=== PATIENT | male | born 1980 | race Two or more races ===

== ENCOUNTER 2021-08-08 16:03 | Emergency (ER) | payer OTHER ==
[~2021-08-08] VITALS: Ht 175.3 cm; Wt 134.4 kg
--- NOTE | 2021-08-08 16:54 | PHYS DOC ---
Past Medical History Past Medical History: Diabetes-Type II, High Cholesterol, Hypertension Additional Past Medical Histor: BEIGN ESSENTIAL TREMORS, SLEEP APENA Past Surgical History: No Surgical History General Adult EDM: Chief Complaint: SHORTNESS OF BREATH HPI: HPI: Patient is a 40 year old male with history of HTN, HLD, DM, obesity, sleep apnea who presents with cough, congestion, fever/chills, body aches, and mild shortness of breath. Patient developed symptoms on 08/02. Continue to go to work throughout the week. Has had progressive shortness of breath over the past 2 days. Has been taking Coricidin cough medicine, but no Tylenol or ibuprofen. Today at work he had an episode of diarrhea and afterwards was clammy, sweaty, and was ill-appearing to his coworkers who called an ambulance. He was taken to [facility] where he waited in the emergency department waiting room for several hours before leaving before being seen. He has had 2 shots of [email or web address] COVID-vaccine. Last in December 2020. Has not received a booster. His has had a runny nose and cough, but otherwise no sick contacts. No kn own COVID contacts. Review of Systems: Review of Systems: Constitutional: Reports fever and chills HENT: Reports cough and congestion. Respiratory: Reports dry cough and shortness of breath Cardiovascular: Denies chest pain or edema. [] GI: Denies abdominal pain, nausea, vomiting, bloody stools or diarrhea. [] : Denies dysuria. [] Musculoskeletal: Reports diffuse muscle aches. Integument: Denies rash. [] Neurologic: Denies headache, focal weakness or sensory changes. [] Endocrine: Denies polyuria or polydipsia. [] Lymphatic: Denies swollen glands. [] Psychiatric: Denies depression or anxiety. [] Heart Score: C/O Chest Pain: No Allergies: Allergies: Allergies Coded Allergies Type Severity Reaction Last Updated Verified metformin Allergy Unknown 08/08/21 Yes oxycodone Allergy Unknown 08/08/21 Yes Physical Exam: PE: Constitutional: Obese, well developed, well nourished, no acute distress, non- toxic appearance. [] HENT: Normocephalic, atraumatic Neck: Normal range of motion, no tenderness, supple, no stridor. [] Cardiovascular: Regular rate and rhythm. Lungs & Thorax: Distant lung sounds given habitus, but no focal abnormalities appreciated on auscultation Abdomen: Bowel sounds normal, soft, no tenderness, no masses, no pulsatile masses. [] Skin: Warm, dry, no erythema, no rash. [] Back: No tenderness, no CVA tenderness. [] Extremities: No tenderness, no cyanosis, no clubbing, ROM intact, no edema. [] Neurologic: Alert and oriented X 3, normal motor function, normal sensory function, no focal deficits noted. [] Psychologic: Affect normal, judgement normal, mood normal. [] Current Patient Data: Vital Signs: Vital Signs Date Time Temp Pulse Resp B/P (MAP) Pulse Ox O2 Delivery O2 Flow Rate FiO2 08/08/21 16:28 98.5 70 18 131/80 (97) 96 Room Air 98.5 EKG: EKG: Sinus rhythm. Borderline first-degree AV block, MI 200 ms. Right bundle branch block with left anterior fascicular block. Impression: Bifascicular block with borderline trifascicular block. [] Radiology/Procedures: Radiology/Procedures: [] Impression: [facility] [address] [place] [address] IMAGING REPORT Signed PATIENT: ANN MCKINNEY ACCOUNT: [id number] : 1980 LOCATION: ER AGE: 40 SEX: M EXAM STATUS: REG ER ORD. PHYSICIAN: SULLY FLOREZ MD REASON: cough, sob PROCEDURE: CHEST AP ONLY EXAM: CHEST ONE VIEW. HISTORY: Cough, shortness of breath. COMPARISON: None. FINDINGS: A frontal view of the chest is obtained. There are no confluent infiltrates. There is no pneumothorax or pleural effusion. The heart is not enlarged. IMPRESSION: 1. No confluent infiltrates. Electronically signed by: Viv Healy MD (08/08/2021 5:09 PM) [facility] DICTATED and SIGNED BY: SULLY HEALY MD DATE: 08/08/21 [id number] Course & Med Decision Making: Course & Med Decision Making Pertinent Labs and Imaging studies reviewed. (See chart for details) Patient 40-year-old male who presents with approximately 5 days of cough congestion, muscle aches, and now shortness of breath. On arrival is afebrile, vital signs stable, satting 96+ percent on room air. High suspicion for pneumonia (viral or bacterial). Fortunately no chest pain to suggest PE, ACS. No wheezing/not COPD. No evidence of volume overload/CHF. Will check CXR, basic labs, COVID/influenza swabs, EKG. 1652 Chest x-ray clear. COVID positive. Very mild hyponatremia. Do not feel he requires active treatment/hospitalization. Vitals have remained stable. Expectant management and return precautions discussed 1809 Meryl Disclaimer: Meryl Disclaimer: This electronic medical record was generated, in whole or in part, using a voice recognition dictation system. Departure Departure Impression: Primary Impression: COVID-19 Disposition: HOME / SELF CARE / HOMELESS Condition: STABLE Referrals: NON,STAFF (PCP) Additional Instructions: You have Covid. Isolation: -You will need to isolate for a minimum of 10 days from symptom onset. -At the 10-day amado (or 5-day amado with a negative COVID test), you must also have at least 3 days of no fever/chills, and improving symptoms before you end your isolation. -If you are continuing to be symptomatic or having high fevers you need to continue your isolation until you meet the above requirements. Monitoring: -Please buy a home pulse oximeter. These can be purchased [id number] most pharmacies, or on [employer]. -Check your oxygen levels once a day. If they are persistently below 90% please return to the emergency department. -If you develop chest pain or worsening shortness of breath please return to the emergency department. For fever/body aches tylenol and ibuprofen are best used on a schedule. Please alternate between the two. -Tylenol 1000 mg every 6 hours (do not exceed 4000 mg in one day) -Ibuprofen 400-600 mg every 6 hours. Take with food. Do not take for more than 1 week. SULLY FLOREZ MD Aug 08, 2021 16:54
--- NOTE | 2021-08-08 17:11 | RAD ---
EXAM: CHEST ONE VIEW. HISTORY: Cough, shortness of breath. COMPARISON: None. FINDINGS: A frontal view of the chest is obtained. There are no confluent infiltrates. There is no pneumothorax or pleural effusion. The heart is not en larged. IMPRESSION: 1. No confluent infiltrates. Electronically signed by: Viv Healy MD (08/08/2021 5:09 PM) [facility]
[2021-08-08 17:25] LABS: BASO # 0.1 x10^3/uL (0.0-0.2); BASO % 1 % (0-3); EOS # 0.3 x10^3/uL (0.0-0.7); EOS % 3 % (0-3); HEMATOCRIT 43.7 % (39.0-53.0); HEMOGLOBIN 14.6 g/dL (13.0-17.5); LYMPH # 2.6 x10^3/uL (1.0-4.8); LYMPH % 27 % (24-48); MEAN CORPUSCULAR HEMOGLOBIN 26 pg (25-35); MEAN CORPUSCULAR HGB CONC 34 g/dL (31-37); MEAN CORPUSCULAR VOLUME 76 fL (79-100); MONO # 0.7 x10^3/uL (0.0-1.1); MONO % 7 % (0-9); NEUT # 6.2 x10^3/uL (1.8-7.7); NEUT % 63 % (31-73); PLATELET COUNT 279 x10^3/uL (140-400); RED BLOOD COUNT 5.73 x10^6/uL (4.30-5.70); RED CELL DISTRIBUTION WIDTH 14.4 % (11.5-14.5); WHITE BLOOD COUNT 9.9 x10^3/uL (4.0-11.0)
[2021-08-08 17:33] LABS: CALCIUM 8.4 mg/dL (8.5-10.1); CREATININE 0.7 mg/dL (0.7-1.3); GFR 123.7; POTASSIUM 4.1 mmol/L (3.5-5.1)
[2021-08-08 17:54] LABS: INFLUENZA A PATIENT NEGATIVE (NEGATIVE); INFLUENZA B PATIENT NEGATIVE (NEGATIVE)
--- NOTE | 2021-08-08 18:05 | EKG ---
[facility] [address] [place] [address] Test Date: 2021-08-08 Test Time: 16:53:06 Pat Name: ANN MCKINNEY Department: Room: Gender: M [employer]: : 1980 Requested By: SULLY FLOREZ Order Number: [id number] Reading MD: Arik Guadarrama Measurements Intervals [place] Rate: 65 P: -8 [place]: 200 QRS: -59 QRSD: 130 T: -11 QT: 440 QTc: 458 Interpretive Statements SINUS RHYTHM ABNORMAL LEFT AXIS DEVIATION LEFT ANTERIOR FASCICULAR BLOCK RIGHT BUNDLE BRANCH BLOCK BIFASCICULAR BLOCK ABNORMAL ECG RI6.01 No previous ECG available for comparison Electronically Signed On 08-09-2021 15:14:11 [employer] REPRESENT[employer]IVE by Arik Guadarrama
[2021-08-08 18:29] VITALS: BP 130/53
== END 2021-08-08 18:57 | disposition home or self-care (01) ==
LOC: ER 16:03
DX: U07.1 COVID-19 (principal); E11.9 Type 2 diabetes mellitus without complications; E78.00 Pure hypercholesterolemia, unspecified; I10 Essential (primary) hypertension; Z88.5 Allergy status to narcotic agent; Z88.8 Allergy status to other drugs, medicaments and biological substances
CPT/HCPCS: 36415; 71045; 80048; 85025; 87428; 93005; 99285-25